=== PATIENT | female | born 1945 | race Caucasian/White ===

== ENCOUNTER 2020-12-29 12:25 | Observation (INO) | payer OTHER ==
--- NOTE | ~2020-12-29 | H ---
[address] [address] HISTORY AND PHYSICAL Name: AN SEPULVEDA LOIS D Room: [address] Shan Plascencia#: [id number] Admission: 12/29/20 Attend Phys: [facility] Discharge: 12/31/20 Date of : 47 Report #: [id number] THIS REPORT FOR: cc: DORIAN - No family physician/PCP [facility],Medical Records Staff ~ [facility] account. Please see documentation on the acute account. By: [id number] Records Staff LEO /LISBETH
[2020-12-29 18:21] LABS: BE -7.5 mmol/L (-2 to +3); PCO2 38.3 mmHg (35.0-45.0); PO2 87.4 mmHg (75.0-100.0)
[2020-12-29 18:23] LABS: pH 7.298 (7.340-7.450)
[2020-12-29 18:25] LABS: ABSOLUTE BASOPHILS 0.1 thou/uL (0.0-0.2); ABSOLUTE EOSINOPHILS 0.5 thou/uL (0.0-0.7); ABSOLUTE LYMPHOCYTES 2.2 thou/uL (0.8-5.3); ABSOLUTE MONOCYTES 1.1 thou/uL (0.0-1.2); ABSOLUTE NEUTROPHILS 9.8 thou/uL (1.6-8.1); BASOPHILS 0.5 %; HEMATOCRIT 29.4 % (37.0-47.0); HEMOGLOBIN 10.1 gm/dL (12.0-15.0); LYMPHOCYTES 15.9 %; MCH 32.8 pg (26.0-34.0); MCHC 34.3 g/dL (28.0-37.0); MCV 95.7 fL (80.0-100.0); MONOCYTES 7.7 %; MPV 10.2 fl. (7.2-11.1); NUCLEATED RBCS 0 /100WBC; PLATELET COUNT* 148 thou/uL (150-400); POLYS 71.9 %; RBC 3.08 mil/uL (4.20-5.00); RDW-CV 15.1 % (10.5-14.5); WBC 13.7 thou/uL (4.0-11.0)
[2020-12-29 18:44] LABS: APTT 27.3 Seconds (25.0-31.3); INR 1.1; PROTIME 11.8 Seconds (9.20-11.50)
[2020-12-29 18:53] LABS: ALBUMIN 1.8 g/dL (3.4-5.0); CALCIUM 7.8 mg/dL (8.5-10.1); CREATININE 6.4 mg/dL (0.6-1.3); DIRECT BILIRUBIN 0.6 mg/dL (<0.1-0.3); MAGNESIUM 1.7 mg/dL (1.8-2.4); PHOSPHORUS* 4.3 mg/dL (2.5-4.9); POTASSIUM 3.4 mmol/L (3.5-5.1); TOTAL BILIRUBIN 0.9 mg/dL (<0.1-1.0); TROPONIN-I LEVEL 0.38 ng/mL (<0.06)
[2020-12-29 19:36] LABS: CK-MB MASS 12.2 ng/mL (<0.5-3.6)
[2020-12-29 20:30] LABS: URINE BILIRUBIN NEGATIVE (Negative); URINE BLOOD 3+ (Negative); URINE CLARITY CLEAR; URINE COLOR YELLOW; URINE GLUCOSE-RANDOM NEGATIVE (Negative); URINE KETONES NEGATIVE (Negative); URINE LEUKOCYTES NEGATIVE (Negative); URINE LEUKOCYTES-REFLEX NEGATIVE (Negative); URINE NITRITE NEGATIVE (Negative); URINE NITRITE-REFLEX NEGATIVE (Negative); URINE PROTEIN 1+ (Negative); URINE SPECIFIC GRAVITY 1.015 (1.005-1.030); URINE UROBILINOGEN 0.2 E.U./dl (0.2-1.0)
[2020-12-29 20:37] LABS: HYALINE CASTS 4-10 Moderate /LPF (None Seen); MUCUS None Seen strn/LPF (None Seen); SQUAMOUS >10 Many /LPF (0-3)
[2020-12-29 20:38] LABS: BACTERIA-REFLEX 1-9 Few /HPF (None Seen); CRYSTALS None Seen /LPF (None Seen); URINE RBC 3-10 Few /HPF (0-2); URINE WBC-REFLEX 0-5 Rare /HPF (0-5)
[2020-12-29 20:46] LABS: URINE WBC 0-5 Rare /HPF (0-5)
[2020-12-30 00:32] LABS: HEMATOCRIT 29.9 % (37.0-47.0); HEMOGLOBIN 10.1 gm/dL (12.0-15.0); MCH 32.3 pg (26.0-34.0); MCHC 33.8 g/dL (28.0-37.0); MCV 95.4 fL (80.0-100.0); MPV 10.2 fl. (7.2-11.1); NUCLEATED RBCS 0 /100WBC; PLATELET COUNT* 181 thou/uL (150-400); RBC 3.13 mil/uL (4.20-5.00); RDW-CV 15.7 % (10.5-14.5); WBC 16.6 thou/uL (4.0-11.0)
[2020-12-30 00:56] LABS: APTT 26.2 Seconds (25.0-31.3); INR 1.1; PROTIME 11.8 Seconds (9.20-11.50)
[2020-12-30 00:59] LABS: BE -11.7 mmol/L (-2 to +3); PCO2 39.9 mmHg (35.0-45.0)
[2020-12-30 01:01] LABS: PO2 237.5 mmHg (75.0-100.0); pH 7.209 (7.340-7.450)
[2020-12-30 01:10] LABS: ALBUMIN 2.1 g/dL (3.4-5.0); CALCIUM 8.7 mg/dL (8.5-10.1); CK-MB MASS 18.3 ng/mL (<0.5-3.6); CREATININE 6.6 mg/dL (0.6-1.3); DIRECT BILIRUBIN 0.7 mg/dL (<0.1-0.3); MAGNESIUM 1.8 mg/dL (1.8-2.4); PHOSPHORUS* 6.5 mg/dL (2.5-4.9); TOTAL BILIRUBIN 0.9 mg/dL (<0.1-1.0); TOTAL PROTEIN 5.7 g/dL (6.4-8.2); TROPONIN-I LEVEL 0.33 ng/mL (<0.06)
[2020-12-30 01:11] LABS: POTASSIUM 4.9 mmol/L (3.5-5.1)
[2020-12-30 01:22] LABS: FIBRINOGEN > 850 mg/dL (200-340)
[2020-12-30 02:35] LABS: ABSOLUTE LYMPHOCYTES 0.7 thou/uL (0.8-5.3); ABSOLUTE MONOCYTES 0.2 thou/uL (0.0-1.2); ABSOLUTE NEUTROPHILS 15.8 thou/uL (1.6-8.1); PLATELET ESTIMATE ADEQUATE; TOXIC GRANULATION 1+
[2020-12-30 06:11] LABS: ABSOLUTE BASOPHILS 0.1 thou/uL (0.0-0.2); ABSOLUTE LYMPHOCYTES 0.3 thou/uL (0.8-5.3); ABSOLUTE MONOCYTES 0.1 thou/uL (0.0-1.2); ABSOLUTE NEUTROPHILS 15.8 thou/uL (1.6-8.1); BASOPHILS 0.5 %; EOSINOPHILS 0.1 %; HEMATOCRIT 33.4 % (37.0-47.0); HEMOGLOBIN 11.1 gm/dL (12.0-15.0); LYMPHOCYTES 1.8 %; MCH 32.2 pg (26.0-34.0); MCHC 33.3 g/dL (28.0-37.0); MCV 96.6 fL (80.0-100.0); MONOCYTES 0.4 %; MPV 10.2 fl. (7.2-11.1); NUCLEATED RBCS 0 /100WBC; PLATELET COUNT* 196 thou/uL (150-400); POLYS 97.2 %; RBC 3.45 mil/uL (4.20-5.00); RDW-CV 15.7 % (10.5-14.5); WBC 16.2 thou/uL (4.0-11.0)
[2020-12-30 06:17] LABS: BE -15.9 mmol/L (-2 to +3); PCO2 37.8 mmHg (35.0-45.0)
[2020-12-30 06:20] LABS: PO2 142.4 mmHg (75.0-100.0); pH 7.133 (7.340-7.450)
[2020-12-30 06:39] LABS: APTT 26.9 Seconds (25.0-31.3); INR 1.2; PROTIME 12.8 Seconds (9.20-11.50)
[2020-12-30 06:46] LABS: ALBUMIN 2.2 g/dL (3.4-5.0); CALCIUM 8.3 mg/dL (8.5-10.1); CK-MB MASS 12.3 ng/mL (<0.5-3.6); CREATININE 6.9 mg/dL (0.6-1.3); DIRECT BILIRUBIN 0.6 mg/dL (<0.1-0.3); MAGNESIUM 1.9 mg/dL (1.8-2.4); PHOSPHORUS* 7.7 mg/dL (2.5-4.9); TOTAL BILIRUBIN 0.9 mg/dL (<0.1-1.0); TROPONIN-I LEVEL 0.21 ng/mL (<0.06)
[2020-12-30 06:49] LABS: FIBRINOGEN > 850 mg/dL (200-340)
[2020-12-30 12:11] LABS: ABSOLUTE LYMPHOCYTES 0.5 thou/uL (0.8-5.3); ABSOLUTE MONOCYTES 0.4 thou/uL (0.0-1.2); ABSOLUTE NEUTROPHILS 14.6 thou/uL (1.6-8.1); BASOPHILS 0.1 %; HEMOGLOBIN 10.7 gm/dL (12.0-15.0); LYMPHOCYTES 3.2 %; MCHC 33.3 g/dL (28.0-37.0); MCV 96.1 fL (80.0-100.0); MONOCYTES 2.3 %; MPV 10.6 fl. (7.2-11.1); NUCLEATED RBCS 0 /100WBC; PLATELET COUNT* 194 thou/uL (150-400); POLYS 94.4 %; RBC 3.33 mil/uL (4.20-5.00); RDW-CV 16.4 % (10.5-14.5); WBC 15.5 thou/uL (4.0-11.0)
[2020-12-30 12:20] LABS: BE -6.5 mmol/L (-2 to +3); PCO2 45.5 mmHg (35.0-45.0); PO2 109.9 mmHg (75.0-100.0)
[2020-12-30 12:22] LABS: pH 7.266 (7.340-7.450)
[2020-12-30 12:33] LABS: APTT 26.5 Seconds (25.0-31.3); INR 1.2; PROTIME 12.5 Seconds (9.20-11.50)
[2020-12-30 13:12] LABS: FIBRINOGEN > 850 mg/dL (200-340)
[2020-12-30 13:56] LABS: CALCIUM 8.5 mg/dL (8.5-10.1); CK-MB MASS 10.1 ng/mL (<0.5-3.6); CREATININE 7.1 mg/dL (0.6-1.3); DIRECT BILIRUBIN 0.3 mg/dL (<0.1-0.3); MAGNESIUM 1.8 mg/dL (1.8-2.4); PHOSPHORUS* 6.7 mg/dL (2.5-4.9); TOTAL BILIRUBIN 0.5 mg/dL (<0.1-1.0); TOTAL PROTEIN 5.6 g/dL (6.4-8.2)
[2020-12-30 13:57] LABS: POTASSIUM 3.9 mmol/L (3.5-5.1)
[2020-12-30 18:10] LABS: ABSOLUTE LYMPHOCYTES 0.6 thou/uL (0.8-5.3); ABSOLUTE MONOCYTES 1.5 thou/uL (0.0-1.2); ABSOLUTE NEUTROPHILS 18.2 thou/uL (1.6-8.1); BASOPHILS 0.1 %; HEMATOCRIT 28.4 % (37.0-47.0); HEMOGLOBIN 9.7 gm/dL (12.0-15.0); MCH 32.5 pg (26.0-34.0); MCHC 34.2 g/dL (28.0-37.0); MCV 94.9 fL (80.0-100.0); MONOCYTES 7.5 %; MPV 9.7 fl. (7.2-11.1); NUCLEATED RBCS 0 /100WBC; PLATELET COUNT* 145 thou/uL (150-400); POLYS 89.4 %; RBC 2.99 mil/uL (4.20-5.00); RDW-CV 15.1 % (10.5-14.5); WBC 20.4 thou/uL (4.0-11.0)
[2020-12-30 18:27] LABS: APTT 24.2 Seconds (25.0-31.3); INR 1.2; PROTIME 12.5 Seconds (9.20-11.50)
[2020-12-30 18:34] LABS: ALBUMIN 2.8 g/dL (3.4-5.0); CALCIUM 7.7 mg/dL (8.5-10.1); CREATININE 3.3 mg/dL (0.6-1.3); DIRECT BILIRUBIN 0.5 mg/dL (<0.1-0.3); MAGNESIUM 1.7 mg/dL (1.8-2.4); PHOSPHORUS* 3.6 mg/dL (2.5-4.9); POTASSIUM 3.8 mmol/L (3.5-5.1)
[2020-12-30 18:36] LABS: TROPONIN-I LEVEL 1.13 ng/mL (<0.06)
[2020-12-30 18:46] LABS: FIBRINOGEN > 850 mg/dL (200-340)
[2020-12-30 21:55] LABS: ABSOLUTE LYMPHOCYTES 0.7 thou/uL (0.8-5.3); ABSOLUTE MONOCYTES 1.1 thou/uL (0.0-1.2); ABSOLUTE NEUTROPHILS 14.7 thou/uL (1.6-8.1); BASOPHILS 0.1 %; EOSINOPHILS 0.1 %; HEMATOCRIT 23.7 % (37.0-47.0); LYMPHOCYTES 4.1 %; MCH 32.5 pg (26.0-34.0); MCHC 33.8 g/dL (28.0-37.0); MONOCYTES 6.5 %; MPV 9.5 fl. (7.2-11.1); NUCLEATED RBCS 0 /100WBC; PLATELET COUNT* 121 thou/uL (150-400); POLYS 89.2 %; RBC 2.47 mil/uL (4.20-5.00); RDW-CV 15.3 % (10.5-14.5); WBC 16.5 thou/uL (4.0-11.0)
[2020-12-30 22:10] LABS: APTT 29.5 Seconds (25.0-31.3); INR 1.3; PROTIME 13.3 Seconds (9.20-11.50)
[2020-12-30 22:21] LABS: ALBUMIN 2.4 g/dL (3.4-5.0); CALCIUM 7.8 mg/dL (8.5-10.1); CK-MB MASS 11.7 ng/mL (<0.5-3.6); CREATININE 3.8 mg/dL (0.6-1.3); DIRECT BILIRUBIN 0.5 mg/dL (<0.1-0.3); MAGNESIUM 1.7 mg/dL (1.8-2.4); PHOSPHORUS* 4.1 mg/dL (2.5-4.9); POTASSIUM 3.9 mmol/L (3.5-5.1); TOTAL BILIRUBIN 0.8 mg/dL (<0.1-1.0); TOTAL PROTEIN 5.6 g/dL (6.4-8.2)
[2020-12-30 22:22] LABS: TROPONIN-I LEVEL 1.16 ng/mL (<0.06)
[2020-12-31] VITALS (11 sets, daily range): BP systolic 75–133; BP diastolic 38–68
[2020-12-31 03:53] LABS: ABSOLUTE LYMPHOCYTES 0.5 thou/uL (0.8-5.3); ABSOLUTE NEUTROPHILS 13.2 thou/uL (1.6-8.1); BASOPHILS 0.1 %; HEMATOCRIT 23.6 % (37.0-47.0); LYMPHOCYTES 3.7 %; MCH 32.6 pg (26.0-34.0); MCHC 33.9 g/dL (28.0-37.0); MCV 96.1 fL (80.0-100.0); MONOCYTES 6.7 %; MPV 9.9 fl. (7.2-11.1); NUCLEATED RBCS 0 /100WBC; PLATELET COUNT* 124 thou/uL (150-400); POLYS 89.5 %; RBC 2.46 mil/uL (4.20-5.00); RDW-CV 15.2 % (10.5-14.5); WBC 14.7 thou/uL (4.0-11.0)
[2020-12-31 04:10] LABS: APTT 29.6 Seconds (25.0-31.3); INR 1.3; PROTIME 13.2 Seconds (9.20-11.50)
[2020-12-31 04:13] LABS: ALBUMIN 1.7 g/dL (3.4-5.0); CALCIUM 7.1 mg/dL (8.5-10.1); CREATININE 3.5 mg/dL (0.6-1.3); DIRECT BILIRUBIN 0.2 mg/dL (<0.1-0.3); MAGNESIUM 1.3 mg/dL (1.8-2.4); PHOSPHORUS* 3.8 mg/dL (2.5-4.9); POTASSIUM 3.2 mmol/L (3.5-5.1); TOTAL BILIRUBIN 0.3 mg/dL (<0.1-1.0); TOTAL PROTEIN 4.3 g/dL (6.4-8.2)
[2020-12-31 04:21] LABS: TROPONIN-I LEVEL 0.83 ng/mL (<0.06)
--- NOTE | 2020-12-31 19:07 | NUR ---
ICU Rounds: Patient an [facility] patient. No CM needs noted at this time.
--- NOTE | 2020-12-31 19:49 | NUR ---
JENNY LACEY. PT EXTUBATED AT 1445. CARDIAC TIME OF 1447. [facility] NOTIFIED
== END 2020-12-31 14:47 ==
LOC: M.ICU 12:25
DX: Z00.5 Encounter for examination of potential donor of organ and tissue (principal)